=== PATIENT | male | born 1985 | race Two or more races ===

== ENCOUNTER 2017-01-22 15:20 | Emergency (ER) | payer MEDICAID ==
[~2017-01-22] VITALS: Ht 170.2 cm; Wt 77.1 kg
[2017-01-22] MEDS ORDERED: Bacitracin Oint UD TOPIC ONE (15:30)
[2017-01-22] MEDS ORDERED: Lidocaine 1% 10mg/ml/Epi 0.005mg/ml 30ml vial INJ ONE (15:30)
[2017-01-22] MEDS ORDERED: Tetanus/Diptheria/Pertussis Vaccine 0.5ml Syr IM ONE (15:30)
[2017-01-22] MEDS ORDERED: BACITRACIN15 GM TOPIC (16:15)
[2017-01-22] MEDS ORDERED: IBUPROFEN600 MG ORAL (16:15)
[2017-01-22 16:30] VITALS: BP 137/64
--- NOTE | 2017-01-22 16:40 | Emergency Room Report ---
History of Present Illness General Chief Complaint: Laceration Source: Patient Present Illness HPI The patient is a 31-year-old male presenting for laceration to the left arm. He states that he was working with cutting tools which slipped and struck the left forearm. This occurred this afternoon. He is unsure of last tetanus shot. Pain is a 3/10 dull ache and does not radiate. Worse with touch. He noticed bleeding to the area. He denies any numbness or tingling. He denies any other symptoms Allergies: Coded Allergies: No Known Allergies (Unverified , 01/22/17) Patient History Past Medical History: see triage record Pertinent Family History: none Reviewed Nursing Documentation: PMH: Agreed, PSxH: Agreed Nursing Documentation-PMH Past Medical History: No Stated History Review of Systems All Other Systems: negative except mentioned in HPI Physical Exam Vital Signs Date Time Temp Pulse Resp B/P (MAP) Pulse Ox O2 Delivery O2 Flow Rate FiO2 01/22/17 15:39 98.1 85 18 142/94 98 Room Air Sp02 EP Interpretation: reviewed, normal General Appearance: no apparent distress, alert, GCS 15, non-toxic Head: normocephalic, atraumatic Eyes: bilateral eye normal inspection, bilateral eye PERRL ENT: hearing grossly normal, normal pharynx, no angioedema, normal voice Neck: full range of motion, supple/symm/no masses Respiratory: chest non-tender, lungs clear, normal breath sounds, speaking full sentences Cardiovascular #1: regular rate, rhythm, no edema Musculoskeletal: back normal, gait/station normal, normal range of motion, non- tender Neurologic: alert, oriented x3, responsive, motor strength/tone normal, sensory intact, speech normal Psychiatric: judgement/insight normal, memory normal, mood/affect normal, no suicidal/homicidal ideation Skin: normal color, laceration - 4cm somewhat gaping laceration to the L mid forearm. Dorsal. Lymphatic: no adenopathy Procedures Laceration/Wound Repair Laceration/Wound Repair : Consent: Verbal Wound Location: upper extremity Wound's Depth, Shape: superficial Wound Length (cm): 4 Wound Explored: clean Irrigated w/ Saline (ccs): 100 Betadine Prep?: Yes Anesthesia: 1% Lidocaine, Lidocaine w/ Epi Volume Anesthetic (ccs): 4 Wound Debrided: minimal Wound Repaired With: sutures Suture Size/Type: 4:0, proline Number of Sutures: 6 Layer Closure?: No Sterile Dressing Applied?: Yes Splint Applied?: No Sling Applied?: No Patient Tolerated: Well Complications: None Medical Decision Making PA Attestation Dr. Yanez is my supervising physician. Patient management was discussed with my supervising physician Diagnostic Impression: Primary Impression: Laceration of arm Qualified Codes: S41.112A - Laceration without foreign body of left upper arm , initial encounter ER Course The patient is a 31-year-old male presenting for laceration to the left arm Ddx considered include but not limited to fracture, tendon/ligament injury, avulsion, nerve damage PE: NAD 4cm somewhat gaping laceration to the L mid forearm. Dorsal. Does not extend to muscle. Full AROM of wrist and fingers. SILT The wound was irrigated with normal saline and cleaned with betadine. A 27g needle was used to administer 4mL of lidocaine w epi for local anasthesia. 6 sutures were placed with 4-0 Nylon. The wound was well approximated and the patient tolerated the procedure well. The wound was then cleaned and bacitracin was applied. The patient is discharged home and will followup with primary doctor. He is given suture instructions. ER precautions given Last Vital Signs Date Time Temp Pulse Resp B/P (MAP) Pulse Ox O2 Delivery O2 Flow Rate FiO2 01/22/17 15:39 98.1 85 18 142/94 98 Room Air Status: improved Disposition: HOME, SELF-CARE Condition: Improved Scripts Bacitracin (Bacitracin) 28.4 Gm Oint...g. 1 APPLIC TOPIC THREE TIMES A DAY, #28 GM Prov: RUDOLPH COSTELLO P.A. 01/22/17 Ibuprofen* (MOTRIN*) 600 Mg Tablet 600 MG ORAL Q8H Y for For Pain, #30 TAB 0 Refills Prov: RUDOLPH COSTELLO P.A. 01/22/17 Patient Instructions: Laceration Care, Adult Additional Instructions: I discussed my findings with the patient. All questions and concerns have been answered. Treatment and medication compliance have been addressed. I advised the patient that they need to follow up with PMD in 7 days for wound check and suture removal. If you are unable to see PMD, return to the ED in 7 days. Return to ED if pain remains or worsens, you notice discharge from the wound, the wound continues to bleed, the suture/s fall out, you notice a fever or chills, or for any reason. Patient is advised to keep the wound clean and apply an antibacterial ointment. Patient verbalized understanding of discharge instructions. RUDOLPH COSTELLO Jan 22, 2017 16:40
== END 2017-01-22 16:35 | disposition home or self-care (01) ==
LOC: EMR 16:32
DX: S51.812A Laceration without foreign body of left forearm, initial encounter (principal); W27.8XXA Contact with other nonpowered hand tool, initial encounter; Y93.9 Activity, unspecified; Y99.9 Unspecified external cause status; Z23 Encounter for immunization
CPT/HCPCS: 12002; 90471; 90715; 99284; Z7502